=== PATIENT | male | born 1990 | race Caucasian/White ===

== ENCOUNTER 2020-03-30 20:47 | Emergency (ER) | payer MEDICAID ==
[~2020-03-30] VITALS: Ht 188 cm; Wt 75.0 kg
[~2020-03-30 20:47] MED LIST: BACI28.33 TOP; NO HOME MEDS
[2020-03-30 21:52] LABS: PARTIAL THROMBOPLASTIN TIME 36 SECONDS (22-32)
[2020-03-30 21:56] LABS: ALANINE AMINOTRANSFERASE 14 U/L (12-78); ALBUMIN 3.4 G/DL (3.4-5.0); ALBUMIN/GLOBULIN RATIO 0.8 (1.1-1.5); ALKALINE PHOSPHATASE 80 IU/L (46-116); ANION GAP 8 (8-16); ASPARTATE AMINO TRANSFERASE 14 U/L (10-37); BILIRUBIN,TOTAL 0.3 MG/DL (0.1-1.0); BLOOD UREA NITROGEN 13 MG/DL (7-18); BUN/CREATININE RATIO 15.9 (5.4-32.0); CALCIUM 8.8 MG/DL (8.5-10.1); CHLORIDE 101 MMOL/L (99-107); CREATININE 0.82 MG/DL (0.60-1.10); GLUCOSE 99 MG/DL (70-104); POTASSIUM 3.3 MMOL/L (3.5-5.1); SODIUM 138 MMOL/L (135-145); TOTAL CARBON DIOXIDE 29.4 MMOL/L (24-32); TOTAL PROTEIN 7.8 G/DL (6.4-8.2); eGFR > 90 ML/MIN
--- NOTE | 2020-03-30 22:11 | NUR ---
informed Dr Pires that the pt is anxious and wanting to go.
--- NOTE | 2020-03-30 22:12 | NUR ---
informed lab to hold off on second BC since he is agitated
--- NOTE | 2020-03-30 22:18 | NUR ---
pt unable to provide a urine sample.
[2020-03-30] MEDS ORDERED: vancomycin/NS 1 GM ADD-VANTAGE 250 ML IV ONE (22:30)
[2020-03-30] MEDS ORDERED: piperacillin/tazo 3.375gm/50ml 50 ML IV ONE (22:30)
[2020-03-30] MEDS ORDERED: LORazepam 2 mg/ml vial IV STA (22:34)
[2020-03-30] MEDS ORDERED: iohexol 300mg/ml 100ml inj. ONE (22:37)
[2020-03-30 22:47] LABS: BASOPHILS # (AUTO) 0.1 X10'3 (0-0.2); BASOPHILS % (AUTO) 0.5 % (0-1); EOSINOPHILS # (AUTO) 0.1 X10'3 (0-0.9); EOSINOPHILS % (AUTO) 1.3 % (0-6); HEMATOCRIT 36.4 % (42.0-52.0); HEMOGLOBIN 12.1 g/dl (14.0-17.9); LYMPHOCYTES # (AUTO) 1.6 X10'3 (1.1-4.8); LYMPHOCYTES % (AUTO) 17.5 % (21-51); MEAN CORPUSCULAR HEMOGLOBIN 29.3 PG (27.0-31.0); MEAN CORPUSCULAR HGB CONC 33.4 g/dL (33.0-36.5); MEAN CORPUSCULAR VOLUME 87.8 FL (78-98); MEAN PLATELET VOLUME 7.3 FL (7.4-10.4); MONOCYTES # (AUTO) 0.8 X10'3 (0-0.9); MONOCYTES % (AUTO) 8.9 % (2-12); NEUTROPHILS # (AUTO) 6.7 X10'3 (1.8-7.7); NEUTROPHILS % (AUTO) 71.8 % (42-75); PLATELET COUNT 263 X10'3 (140-440); RED BLOOD COUNT 4.14 X10'6 (4.70-6.10); WHITE BLOOD COUNT 9.4 X10'3 (4.5-11.0)
[2020-03-30 22:56] VITALS: BP 122/78
--- NOTE | 2020-03-30 23:49 | NUR ---
PT ON THE PHONE CURSING. HE IS THREATENING TO LEAVE. HE WAS GIVEN ATIVAN BUT HE STATES IT DID NOT HELP BECAUSE "I USE TO TAKE THAT STUFF LIKE IT WAS CANDY" PT STATES HE HAS A HIGH TOLERANCE FOR MOST MEDICATIONS. HE CURRENTLY HAS IV ABX INFUSING.
== END 2020-03-31 00:27 | disposition left against medical advice (07) ==
LOC: ER 20:48
DX: L02.413 Cutaneous abscess of right upper limb (principal); L03.113 Cellulitis of right upper limb; Z56.0 Unemployment, unspecified; Z88.5 Allergy status to narcotic agent; Z79.899 Other long term (current) drug therapy
CPT/HCPCS: 36415; 73201; 80053; 83605; 84145; 85025; 85610; 85730; 87040; 96365; 96375; 99285; J2060; J2543; J3370; Q9967; 96374